=== PATIENT | male | born 1990 | race Native Hawaiian/Other Pacific Islander ===

== ENCOUNTER 2019-12-08 19:29 | Emergency (ER) | payer OTHER ==
[~2019-12-08] VITALS: Ht 190.5 cm; Wt 120.2 kg
[2019-12-08 19:35] VITALS: BP 161/92; TEMP 98.1
== END 2019-12-08 20:37 | disposition home or self-care (01) ==
LOC: ED 19:29
DX: M67.431 Ganglion, right wrist (principal)
CPT/HCPCS: 99282; 99283

== ENCOUNTER 2022-03-07 02:27 | Emergency (ER) | payer OTHER ==
[~2022-03-07] VITALS: Ht 190.5 cm; Wt 131.5 kg
[2022-03-07 04:20] VITALS: BP 163/97; TEMP 97.6
== END 2022-03-07 04:25 | disposition home or self-care (01) ==
LOC: ED 02:27
DX: H65.193 Other acute nonsuppurative otitis media, bilateral (principal)
CPT/HCPCS: 93005; 96372; 99283; J0696; J1885

== ENCOUNTER 2022-04-03 13:43 | Emergency (ER) | payer OTHER ==
[~2022-04-03] VITALS: Ht 190.5 cm; Wt 131.5 kg
[2022-04-03 13:48] VITALS: TEMP 97.2
[2022-04-03 17:02] VITALS: BP 143/94
== END 2022-04-03 17:13 | disposition short-term general hospital (02) ==
LOC: ED 13:43
DX: S81.811A Laceration without foreign body, right lower leg, initial encounter (principal); S81.011A Laceration without foreign body, right knee, initial encounter; W23.0XXA Caught, crushed, jammed, or pinched between moving objects, initial encounter; Y93.52 Activity, horseback riding; Y92.89 Other specified places as the place of occurrence of the external cause; Z20.822 Contact with and (suspected) exposure to COVID-19
CPT/HCPCS: 80307; 87635; 90471; 90715; 96372; 99284; J0690; J1885; U0003